=== PATIENT | male | born 1975 | race Caucasian/White ===

== ENCOUNTER 2021-12-20 20:43 | Emergency (ER) | payer OTHER ==
[2021-12-20 21:04] VITALS: BP 152/95; PULSE 78; TEMP 99.5; BMI 27.3
[2021-12-20 21:53] LABS: ALBUMIN 4.3 g/dl (3.4-5.0); BILIRUBIN,TOTAL 0.7 mg/dl (0.2-1); CALCIUM 9.8 mg/dl (8.5-10); TOT PROT 7.2 g/dl (6.4-8.2)
[2021-12-20 22:43] LABS: LYMPH % 19.9 % (8-40); MEAN CELL VOLUME 90.5 fl (80-96); MEAN PLT VOLUME 9.1 fl (7.5-11.1)
[2021-12-20 22:46] LABS: BASO % 0.6 % (0-2.0); EOS % 1.8 % (0-4.5); HEMATOCRIT 42.7 % (35.4-49); HEMOGLOBIN 14.8 GM/dL (11.7-16.9); MCH 31.3 pg (25.7-33.7); MCHC 34.6 g/dl (32.0-35.9); MONO % 12.7 % (3.8-10.2); PLATELET COUNT 226 10^3/uL (134-434); RBC 4.72 M/mm3 (4.00-5.60); RDW 13.1 % (11.9-15.9)
== END 2021-12-20 23:10 | disposition home or self-care (01) ==
LOC: FER 20:43
DX: R07.89 Other chest pain (principal)
CPT/HCPCS: 36415; 71045-TC-FY; 80053; 82550; 84484; 85025; 93005; 99284-25